=== PATIENT | male | born 1975 | race African-American/Black ===

== ENCOUNTER 2019-09-29 01:12 | Emergency (ER) | payer OTHER ==
[~2019-09-29] VITALS: Ht 175 cm; Wt 109.1 kg
--- OUTSIDE RECORDS SUMMARY | 2019-09-29 01:21 | XMS REPORT ---
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
--- OUTSIDE RECORDS SUMMARY | 2019-09-29 01:21 | XMS REPORT | Continuity of Care Document ---
Demographics Preferred Language Unknown Marital Status Unknown Pentecostal Affiliation Unknown Race Unknown Ethnic Group Unknown Author Organization Unknown Address Unknown Phone Unavailable Allergies Active Description Code Type Severity Reaction Onset Reported/Identified Relationship to Patient Clinical Status Yes NO KNOWN DRUG ALLERGIES UNKNOWN UNKNOWN Medications There is no data. Problems Date Dx Coded Attending Type Code Diagnosis Diagnosed By 08/03/2017 W 278.02 OVE RWEIGHT 08/03/2017 W 796.2 ELEV ATED BLOOD PRESSURE READING WITHOUT DIAGNOSIS OF HYPERTENSION 08/03/2017 W E66.3 OVER WEIGHT 08/03/2017 W R03.0 ELEV ATED BLOOD- PRESSURE READING, WITHOUT DIAGNOSIS OF HYPERTENSION 08/03/2017 W V17.3 FAMI LY HISTORY OF ISCHEMIC HEART DISEASE 08/03/2017 W Z82.49 FAM WESLY HISTORY OF ISCHEMIC HEART DISEASE AND OTHER DISEASES OF THE CIRCULATORY SYSTEM Procedures There is no data. Results There is no data. Encounters ACCT No. Visit Date/Time Discharge Status Pt. Type Provider Facility Loc./Unit Complaint [id number] 08/03/2017 11:05:00 Document Registration
--- OUTSIDE RECORDS SUMMARY | 2019-09-29 01:21 | XMS REPORT ---
Author Chris Bruno [facility] eClinicalWorks Address Unknown Phone Unavailable Care Team Providers Care Supervisor Solder Making Name Role Phone SILVESTRE VORA CP Unavailable Allergies, Adverse Reactions, Alerts Substance Reaction Event Type N.K.D.A. 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 Medications No Known Medications Procedures Procedure Coding System Code Date COMPREHEN METABOLIC PANEL CPT-4 03733 Jan LIPID PANEL CPT-4 26538 Feb 09, 2015 COMPLETE CBC W/AUTO DIFF WBC CPT-4 32372 Feb 09, 2015 VENIPUNCT, ROUTINE* CPT-4 96728 Feb 09, 2015 Office Visit, New Pt., Level 4 CPT-4 19156 A 2014 Vital Signs Date/Time: Feb 09, 2015 Temperature 97.7 F Weight 245.9 lbs Height 70.8 in BMI 34.49 Index Blood Pressure Diastolic 88 mmHg Blood Pressure Systolic 132 mmHg Cardiac Monitoring Heart Rate 72 bpm Results Name Result Date Reference Range Unit Abnormali ty Flag CBC Summary Purpose eClinicalWorks Submission
--- OUTSIDE RECORDS SUMMARY | 2019-09-29 01:21 | XMS REPORT ---
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
--- NOTE | 2019-09-29 01:41 | NUR ---
Occ. Health here at this time.
[2019-09-29] MEDS ORDERED: LIDOCAINE 1% INJ 20 ML 20 ML VIAL ONE (02:34)
[2019-09-29] MEDS ORDERED: LIDOCAINE 1% INJ 20 ML 20 ML VIAL INJ ONE (02:45)
--- NOTE | 2019-09-29 02:47 | ED Upper Extremity ---
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 Bleeding is controlled with dressing on arrival. Pt denies any pain at this time. Nursing Sepsis Screen: No Definite Risk Source: patient Exam Limitations: no limitations History of Present Illness Date Seen by Provider: Sep 29, 2019 Time Seen by Provider: 02:32 Initial Comments Here with report of laceration to the left index finger middle phalanx area on the thumb side. He was cutting strapping with a box knife when he ran across his finger. Bleeding controlled. Denies other injury. Tetanus is not up-to-date. Onset: just prior to arrival Severity: mild Pain/Injury Location: left 2nd finger Method of Injury: incised Modifying Factors: Improves With Immobilization; Worse With Movement Allergies and Home Medications Allergies Coded Allergies: No Known Drug Allergies (Unverified , 04/09/11) Patient Home Medication List Home Medication List Reviewed: Yes Review of Systems Constitutional: no symptoms reported Respiratory: no symptoms reported Cardiovascular: no symptoms reported Musculoskeletal: see HPI Skin: see HPI; No change in color; lesions Psychiatric/Neurological: Denies Numbness, Denies Paresthesia Past Adbntqj-Ibvedq-Icbjje Hx Past Med/Social Hx: Reviewed Nursing Past Med/Soc Hx Patient Social History Alcohol Use: Rarely Uses Recreational Drug Use: No Smoking Status: Never a Smoker 2nd Hand Smoke Exposure: No Recent Foreign Travel: No Contact w/Someone Who Travel: No Recent Infectious Disease Expo: No Recent Hopitalizations: No Physical Abuse: No Sexual Abuse: No Mistreated: No Fear: No Immunizations Up To Date Tetanus Booster (TDap): Unknown Seasonal Allergies Seasonal Allergies: No Past Medical History Surgeries: No Respiratory: No Cardiac: No Neurological: No Genitourinary: No Gastrointestinal: No Musculoskeletal: No Endocrine: No HEENT: No Cancer: No Psychosocial: No Integumentary: No Family Medical History Reviewed Nursing Family Hx Physical Exam Vital Signs Vital Signs - First Documented 09/29/19 01:26 Temp 36.9 Pulse 89 Resp 19 B/P (MAP) 120/69 (86) Pulse Ox 98 O2 Delivery Room Air Capillary Refill : Less Than 3 Seconds Height, Weight, BMI Height: '" Weight: lbs. oz. kg; 35.00 BMI Method: General Appearance: WD/WN, no apparent distress Cardiovascular: regular rate, rhythm, no murmur Respiratory: lungs clear, normal breath sounds Hand: Left, laceration (index finger thumb side approximately 3 cm laceration U shaped flap. Distal sensation and circulation intact. Retains range of motion with good strength to the distal finger.) Neurologic/Psychiatric: no motor/sensory deficits, alert, oriented x 3 Skin: normal color, warm/dry Procedures/Interventions Wound Location: Upper Extremities Other Wound Location Left index finger thumb side Wound Length (cm): 3 Wound's Depth, Shape: linear Wound Explored: contaminated Irrigated w/ Saline (ccs): 100 Betadine Prep?: Yes Anesthesia: 1% Lidocaine Volume Anesthetic (ccs): 5 Suture: Prolene Suture Size: 4-0 Number of Sutures: 4 Layer Closure?: 1 Number Deep Layer Sutures: 0 Sterile Dressing Applied?: Yes Progress Prepped with Betadine and cleaned with copious saline. Suture repair with good approximation. Anesthesia via digital block 5 mL 1% lidocaine. Tolerated procedure well with no complications. Progress/Results/Core Measures Results/Orders My Orders Orders - YONAS BIRD MD Lidocaine 1% Inj 20 Ml (Xylocaine 1% Inj (09/29/19 02:45) Lidocaine 1% Inj 20 Ml (Xylocaine 1% Inj (09/29/19 02:34) Dipht,Pertuss(Acell),Tet Adult (Boostrix (09/29/19 03:00) Medications Given in ED Current Medications Medications Dose Ordered Sig/Shasta Route Start Time Stop Time Status Last Admin Dose Admin Diphtheria/ Tetanus/Acell Pertussis 0.5 ml ONCE ONCE IM 09/29/19 03:00 09/29/19 03:01 DC 09/29/19 03:05 0.5 ML Lidocaine HCl 20 ml ONCE ONCE INJ 09/29/19 02:45 09/29/19 02:46 DC 09/29/19 02:55 20 ML Vital Signs/I&O 09/29/19 01:26 Temp 36.9 Pulse 89 Resp 19 B/P (MAP) 120/69 (86) Pulse Ox 98 O2 Delivery Room Air Blood Pressure Mean: 86 Progress Progress Note : Progress Note Seen and evaluated. Wound cleaned and repaired with suture. Covered with antibiotic ointment and dressing. Tolerated procedure well with no complications. Discharged home with return precautions. Patient verbalize understanding instructions and agreement with plan. Departure Impression Primary Impression: Laceration of left index finger w/o foreign body w/o damage to nail Qualified Codes: S61.211A - Laceration without foreign body of left index finger without damage to nail, initial encounter Disposition: 01 HOME, SELF-CARE Condition: Improved Departure-Patient Inst. Decision time for Depature: 02:48 Referrals: NO,LOCAL PHYSICIAN (PCP/Family) Primary Care Physician Patient Instructions: Laceration Repair With Stitches (DC), Diphtheria and Tetanus Toxoids, and Acellular Pertussis Vaccine Add. Discharge Instructions: All discharge instructions reviewed with patient and/or family. Voiced understanding. Sutures out in 10-12 days. Follow-up with occupational health health for recheck and further evaluation and for suture removal. You may get sutures removed in the emergency department as well. Return for worse pain, swelling, red streaks up the hand, foul-smelling drainage or other concerns as needed. Keep dressing in place for 2 days and then remove. You may then use antibiotic ointment and Band-Aid or dressing to keep the wound clean and protected. Use ointment over the next 5-7 days and then dry dressing thereafter. It is okay to gently wash the wound with mild soap and water once initial dressing is removed. You may shower but do not soak wound otherwise. Do not put pressure on that area that would interfere with wound healing or with suture repair. YONAS BIRD MD Sep 29, 2019 02:47
[2019-09-29] MEDS ORDERED: TETANUS,DIPTH,PERTUSS P/F (BOOSTRIX) 0.5 ML VIAL IM ONE (03:00)
[2019-09-29 03:21] VITALS: BP 122/72
== END 2019-09-29 03:20 | disposition home or self-care (01) ==
LOC: EDUNIT# 01:12 → ER 01:15
DX: S61.211A Laceration without foreign body of left index finger without damage to nail, initial encounter (principal); Z23 Encounter for immunization; W26.0XXA Contact with knife, initial encounter; Y92.59 Other trade areas as the place of occurrence of the external cause
CPT/HCPCS: 90715

== ENCOUNTER 2019-10-07 15:08 | Emergency (ER) | payer OTHER ==
[~2019-10-07] VITALS: Ht 175 cm; Wt 109.0 kg
--- OUTSIDE RECORDS SUMMARY | 2019-10-07 15:15 | XMS REPORT | Continuity of Care Document ---
Demographics Preferred Language Unknown Marital Status Unknown Evangelical Affiliation Unknown Race Unknown Ethnic Group Unknown Author Organization Unknown Address Unknown Phone Unavailable Allergies Active Description Code Type Severity Reaction Onset Reported/Identified Relationship to Patient Clinical Status Yes NO KNOWN DRUG ALLERGIES UNKNOWN UNKNOWN Yes No Known Drug Allergies [id number] Drug Allergy Unknown N/A 04/09/2011 Medications There is no data. Problems Date [...] AND OTHER DISEASES OF THE CIRCULATORY SYSTEM 09/29/2019 YONAS BIRD MD Ot M79.644 PAIN IN RIGHT FINGER(S) 09/29/2019 YONAS BIRD MD Ot S61.211A LACERATION W/O FB OF L IDX FNGR W/O MEAGAN 09/29/2019 YONAS BIRD MD Ot W26.0XXA CONTACT WITH KNIFE, INITIAL ENCOUNTER 09/29/2019 YONAS BIRD MD Ot Y92.[address] 09/29/2019 YONAS BIRD MD Ot Z23 ENCOUNTER FOR IMMUNIZATION 10/02/2019 YONAS BIRD MD Ot M79.644 PAIN IN RIGHT FINGER(S) 10/02/2019 YONAS BIRD MD Ot S61.211A LACERATION W/O FB OF L IDX FNGR W/O MEAGAN 10/02/2019 YONAS BIRD MD Ot W26.0XXA CONTACT WITH KNIFE, INITIAL ENCOUNTER 10/02/2019 YONAS BIRD MD Ot Y92.[address] 10/02/2019 YONAS BIRD MD Ot Z23 ENCOUNTER FOR IMMUNIZATION Procedures There is no data. Results There is no data. Encounters ACCT No. Visit Date/Time Discharge Status Pt. Type Provider Facility Loc./Unit Complaint [id number] 08/03/2017 11:05:00 Document Registration [id number] 09/29/2019 01:15:00 03:20:00 DIS Emergency YONAS BIRD MD [facility] ER L HAND FINGER LACERATIO N [id number] 10/07/2019 15:09:[address] Emergency YONAS BIRD MD [facility] ER SUTURE REMOVAL
[2019-10-07 16:08] VITALS: BP 123/74
== END 2019-10-07 16:06 | disposition home or self-care (01) ==
LOC: EDUNIT# 15:08 → ER 15:09
DX: S61.218D Laceration without foreign body of other finger without damage to nail, subsequent encounter (principal)